=== PATIENT | female | born 1970 | race Caucasian/White ===

== ENCOUNTER 2017-06-30 15:58 | Emergency (ER) | payer BC, OTHER ==
[~2017-06-30] VITALS: Ht 165.1 cm; Wt 67.1 kg
[2017-06-30 15:58] VITALS: BP_SYST 140
--- NOTE | 2017-06-30 16:00 | NUR ---
BROUGHT BACK TO BED #6 AND TRIAGED. REPORT GIVEN TO DAFNE
--- NOTE | 2017-06-30 16:15 | NUR ---
Received Pt in bed 6. Pt c/o nausea, bilateral flank pain, left lower abd. pain, and fever. Pt describes pain as an aching dull pain 04/27. Pt stated she took advil Addendum: 06/30/17 at 1709 by SNURHL Pt unable to recall dosage of advil medication. Pt stated medication decrease temp to 99.0. Pt c/o frontal sinus pressure upon ligh palpation. Lymph nodes non palpable. Pt breathing even and unlabored. O2 sat 97% room air.Lung sounds ausculated, lung sounds clear throughout all lobes. Pt c/o dry non productive cough. Abd. auscultated, bowel sounds noted throughout all quadrant. Abd. soft and non distended. Pt c/o left lower abd pain upon light palpation, and bilateral flank pain upon percussion. Pt denies burning sensation, frequency, and urgency upon urination, no diarrhea.
--- NOTE | 2017-06-30 16:25 | NUR ---
Dr. Latif at the bedside evaluating Pt. Currently awaiting new orders.
[2017-06-30] MEDS ORDERED: NACL 0.9% 1,000 ML IV ONE (16:45)
[2017-06-30] MEDS ORDERED: cefTRIAXone 1 GM IVPB PREMIX 50 ML IV ONE (16:45)
[2017-06-30] MEDS ORDERED: ACETAMINOPHEN 500 MG TABLET PO ONE (16:45)
[2017-06-30] MEDS ORDERED: KETOROLAC TROMETHAMINE 30 MG VIAL IVP ONE (16:45)
[2017-06-30 16:46] LABS: HEMATOCRIT 37.1 % (36-48); HEMOGLOBIN 12.5 g/dL (12.0-16.0); MEAN CORPUSCULAR HEMOGLOBIN 29 pg (27-31); MEAN CORPUSCULAR HGB CONC 34 % (32-36); MEAN CORPUSCULAR VOLUME 85 fL (79.0-98.0); PLATELET COUNT (AUTO) 262 K/uL (130-430); RED BLOOD CELL COUNT(AUTO) 4.35 MIL/uL (4.2-6.2); RED CELL DISTRIBUTION WIDTH 13.4 % (9.0-15.0); WHITE BLOOD COUNT (AUTO) 12.3 K/uL (4.8-10.8)
[2017-06-30 16:55] LABS: CALCIUM 9.8 mg/dL (8.4-11.0); CREATININE 0.87 mg/dL (0.55-1.30); POTASSIUM 3.6 mmol/L (3.5-5.1)
[2017-06-30 16:56] LABS: INR 1.1 (0.8-1.2); PROTHROMBIN TIME 10.7 SECS (9.5-12.5)
[2017-06-30 16:57] LABS: BAND % (MANUAL) 0 % (0-6); BASOPHILS % (MANUAL) 0 % (0-2); EOSINOPHILS % (MANUAL) 0 % (0-7); LYMPHOCYTES % (MANUAL) 5 % (20-46); MONOCYTES % (MANUAL) 4 % (0-11)
[2017-06-30 16:59] LABS: ALBUMIN 4.1 g/dL (3.4-4.8); TOTAL BILIRUBIN 1.9 mg/dL (0.0-1.0)
[2017-06-30 17:16] LABS: BILIRUBIN,URINE NEGATIVE (NEGATIVE); BLOOD, URINE 3+ (NEGATIVE); CLARITY/URINE SLIGHTLY CLOUDY (CLEAR); COLOR,URINE YELLOW (YELLOW); GLUCOSE,URINE NEGATIVE (NEGATIVE); KETONES,URINE 3+ (NEGATIVE); LEUKOCYTE ESTERASE ,URINE 3+ (NEGATIVE); NITRITE, URINE POSITIVE (NEGATIVE); PROTEIN URINE 2+ (NEGATIVE); UROBILINOGEN,URINE 0.2 (0.2-1.0)
[2017-06-30 17:18] LABS: RBC,URINE 0-3 /HPF (0-3); WBC,URINE >100 /HPF (0-3)
[2017-06-30 17:19] LABS: BACTERIA,URINE MODERATE /HPF (None Seen); MUCUS,URINE None Seen /LPF (None Seen)
--- NOTE | 2017-06-30 17:30 | NUR ---
Dr. Latif at the bedside discussing reevaluating. Currently awaiting new orders.
--- NOTE | 2017-06-30 17:54 | NUR ---
Patient given written and verbal discharge instructions and verbalizes understanding. ER MD discussed with patient the results and treatment provided. Patient in stable condition. ID arm band removed. IV catheter removed intact and dressing applied, no active bleeding. Rx of Cipro and Motrin given. Patient educated on pain management and to follow up with PMD. Pain Scale 2/10. Opportunity for questions provided and answered.
[2017-06-30 18:00] VITALS: BP_SYST 132
--- NOTE | 2017-07-02 18:02 | NUR ---
+URINE CX OBTAINED FROM LAB DR. PARTIDA REVIEWED REQUESTED PATIENT BE PLACED ON MACROBID 100MG BID X 10 DAYS. NO ANSWER MESSAGE LEFT
--- NOTE | 2017-07-02 18:21 | NUR ---
SPOKE WITH PATIENT REQUESTED TO CALL [facility] [phone] MESSAGE LEFT FOR PHARMACY. INFORMED PATIENT TO STOP TAKING CIPRO START TAKING MACROBID AND TO F/U WITH PMD DENIES FUTHER QUESTIONS OR CONCERNS
== END 2017-06-30 17:54 | disposition home or self-care (01) ==
LOC: SED 15:58
DX: N12 Tubulo-interstitial nephritis, not specified as acute or chronic (principal)
CPT/HCPCS: 36415; 71010; 74000; 80053; 81000; 83605; 84484; 85007; 85027; 85610; 87040; 87086; 87186; 96365; 96375; 99285; J0696; J1885; J7030

== ENCOUNTER 2017-07-04 12:18 | Emergency (ER) | payer BC ==
[~2017-07-04] VITALS: Ht 162.6 cm; Wt 67.1 kg
[2017-07-04 12:39] VITALS: BP_SYST 145
[2017-07-04] MEDS ORDERED: KETOROLAC TROMETHAMINE 30 MG VIAL IVP ONE (13:30)
[2017-07-04] MEDS ORDERED: PROCHLORPERAZINE EDISYLATE 10 MG/2 ML VIAL IVP ONE (13:30)
[2017-07-04 13:47] LABS: BASOPHILS % (AUTO) 0.8 % (0.0-2.0); EOSINOPHILS % (AUTO) 0.9 % (0.0-4.0); HEMATOCRIT 32.2 % (36-48); HEMOGLOBIN 10.4 g/dL (12.0-16.0); LYMPHOCYTES % (AUTO) 21.2 % (20.5-51.5); MEAN CORPUSCULAR HEMOGLOBIN 28 pg (27-31); MEAN CORPUSCULAR HGB CONC 32 % (32-36); MEAN CORPUSCULAR VOLUME 86 fL (79.0-98.0); MONOCYTES # (AUTO) 0.4 K/uL (0.0-1.0); MONOCYTES % (AUTO) 8.1 % (1.7-9.3); NEUTROPHILS # (AUTO) 3.2 K/uL (1.8-7.7); PLATELET COUNT (AUTO) 262 K/uL (130-430); RED BLOOD CELL COUNT(AUTO) 3.76 MIL/uL (4.2-6.2); RED CELL DISTRIBUTION WIDTH 13.3 % (9.0-15.0); WHITE BLOOD COUNT (AUTO) 4.6 K/uL (4.8-10.8)
[2017-07-04 13:51] LABS: BILIRUBIN,URINE NEGATIVE (NEGATIVE); BLOOD, URINE NEGATIVE (NEGATIVE); CLARITY/URINE SL HAZY (CLEAR); COLOR,URINE YELLOW (YELLOW); GLUCOSE,URINE NEGATIVE (NEGATIVE); KETONES,URINE NEGATIVE (NEGATIVE); LEUKOCYTE ESTERASE ,URINE NEGATIVE (NEGATIVE); NITRITE, URINE NEGATIVE (NEGATIVE); PROTEIN URINE NEGATIVE (NEGATIVE); UROBILINOGEN,URINE 0.2 (0.2-1.0)
[2017-07-04 14:02] LABS: CALCIUM 9.7 mg/dL (8.4-11.0); CREATININE 0.7 mg/dL (0.55-1.30); POTASSIUM 4.4 mmol/L (3.5-5.1)
[2017-07-04 14:07] LABS: ALBUMIN 3.4 g/dL (3.4-4.8); TOTAL BILIRUBIN 0.5 mg/dL (0.0-1.0)
[2017-07-04 15:16] VITALS: BP_SYST 137
== END 2017-07-04 15:16 | disposition home or self-care (01) ==
LOC: SED 12:18
DX: G44.209 Tension-type headache, unspecified, not intractable (principal)
CPT/HCPCS: 36415; 80053; 81003; 83605; 85025; 96374; 96375; 99284; J0780; J1885

== ENCOUNTER 2020-07-08 20:44 | Emergency (ER) | payer BC ==
[~2020-07-08] VITALS: Ht 162.6 cm; Wt 74.8 kg
[2020-07-08 20:48] VITALS: BP_SYST 150
--- NOTE | 2020-07-08 20:51 | NUR ---
Patient to ER bed 05 to gown for evaluation. Side rails up.
--- NOTE | 2020-07-08 20:55 | NUR ---
ER at bedside examining patient.
--- NOTE | 2020-07-08 20:57 | NUR ---
Pt reports headache x today. Pt states taking tylenol at home w/ no relief. Pt reports feeling headaches when having a UTI. Denies flank pain or pain upon urination. Denies blurry vision, cp and fever.
[2020-07-08] MEDS ORDERED: KETOROLAC TROMETHAMINE 60 MG/2 ML VIAL IM ONE (21:15)
[2020-07-08] MEDS ORDERED: ONDANSETRON 4 MG ODT TAB PO ONE (21:15)
[2020-07-08 21:20] VITALS: BP_SYST 150
--- NOTE | 2020-07-08 21:20 | NUR ---
Patient given written and verbal discharge instructions and verbalizes understanding. ER MD discussed with patient the results and treatment provided. Patient in stable condition. ID arm band removed. Rx of Cipro, motrin, zofran and norco given. Patient educated on pain management and to follow up with PMD. Opportunity for questions provided and answered. Medication side effect fact sheet provided.
== END 2020-07-08 21:20 | disposition home or self-care (01) ==
LOC: SED 20:44
DX: N39.0 Urinary tract infection, site not specified (principal); R51.9 Headache, unspecified
CPT/HCPCS: 81002; 81025; 96372; 99283; J1885; Q0162

== ENCOUNTER 2020-07-14 13:52 | Emergency (ER) | payer BC ==
[~2020-07-14] VITALS: Ht 162.6 cm; Wt 74.8 kg
--- NOTE | 2020-07-14 13:57 | NUR ---
Patient to ER bed 03 to gown for evaluation. Side rails up.
--- NOTE | 2020-07-14 14:00 | NUR ---
ER Dr. Martin at bedside examining patient.
[2020-07-14 14:08] VITALS: BP_SYST 150
--- NOTE | 2020-07-14 14:15 | NUR ---
pt moved to room 7, due to C/O cough and a fever. Pt is alert and oriented. oxygen saturation is at 93% on room air.
[2020-07-14] MEDS ORDERED: KETOROLAC TROMETHAMINE 60 MG/2 ML VIAL IM ONE (14:30)
--- NOTE | 2020-07-14 14:39 | NUR ---
Patient given written and verbal discharge instructions and verbalizes understanding. ER MD discussed with patient the results and treatment provided. Patient in stable condition. ID arm band removed. Rx of keflex and prednisone given. Patient educated on pain management and to follow up with PMD. Pain Scale 1/10. Opportunity for questions provided and answered. Medication side effect fact sheet provided.
[2020-07-14 14:41] VITALS: BP_SYST 150
== END 2020-07-14 14:39 | disposition home or self-care (01) ==
LOC: SED 13:52
DX: N39.0 Urinary tract infection, site not specified (principal); R05 Cough
CPT/HCPCS: 81002; 81025; 87086; 96372; 99283; J1885